=== PATIENT | female | born 1955 | race Caucasian/White ===

== ENCOUNTER 2018-08-01 15:52 | Emergency (ER) | payer MEDICARE, BC ==
[2018-08-01 16:42] VITALS: BP 95/68
--- NOTE | 2018-08-01 16:57 | UC ---
Dizzy HPI HPI Summary: SUDDEN ONSET OF DIZZINESS WHILE GOING TO THE BATHROOM 2 NIGHTS AGO. SYMPTOMS WERE SO SEVERE THAT SHE FELL OFF THE TOILET. POSSIBLE LOC. SINCE THEN HAS HAD PERSISTENT DIZZINESS/SENSATION OF SPINNING AND RIGHT FRONTOTEMPORAL DULL HEADACHE. VISION SEEMS BLURRY. SHE DENIES CHEST PAIN, SHORTNESS OF BREATH, NAUSEA. IS A HEAVY SMOKER. DIZZINESS IS NOT POSITIONAL. FEELS UNSTABLE ON HER FEET AND REPORTS HAVING TO WALK SLOWLY AND CAUTIOUSLY WHICH IS UNUSUAL FOR HER. - History Of Current Complaint Chief Complaint: UCDizziness Stated Complaint: DIZZY Time Seen by Provider: 08/01/18 15:57 Hx Obtained From: Patient, Family/Bead Filler - SISTER Hx Last Menstrual Period: post Onset/Duration: Sudden Onset, Lasting Days, Still Present Timing: Constant Severity Initially: Moderate Severity Currently: Moderate Pain Intensity: 3 Pain Scale Used: 0-10 Numeric Character: Head Spinning, Lightheaded, Dizzy Aggravating Factor(s): Nothing Alleviating Factor(s): Nothing Associated Signs And Symptoms: Positive: Unsteady Gait. Negative: Nausea, Vomiting, Chest Pain, SOB, Palpitations - Allergies/Home Medications Allergies/Adverse Reactions: Allergies Allergy/AdvReac Type Severity Reaction Status Date / Time Penicillins Allergy Severe Hives Verified 08/01/18 16:09 Home Medications: Home Medications Alendronate Sodium 70 mg PO WEEKLY 08/01/18 [History Confirmed 08/01/18] Pravastatin (NF) [Pravachol (NF)] 20 mg PO 08/01/18 [History] PMH/Surg Hx/FS Hx/Imm Hx Endocrine History: Dyslipidemia Cardiovascular History: Hypertension - Surgical History Surgical History: Yes Surgery Procedure, Year, and Place: BMT 2002 [place] - Family History Known Family History: Positive: Hypertension Negative: Cardiac Disease - Social History Alcohol Use: Weekly Substance Use Type: None Smoking Status (MU): Heavy Every Day Tobacco Smoker Type: Cigarettes Amount Used/How Often: 1/2 PPD Length of Time of Smoking/Using Tobacco: 45 YRS Have You Smoked in the Last Year: Yes Review of Systems All Other Systems Reviewed And Are Negative: Yes Constitutional: Positive: Negative Eyes: Positive: Blurred Vision Respiratory: Positive: Negative Cardiovascular: Positive: Negative Gastrointestinal: Positive: Negative Neurological: Positive: Headache, Other - DIZZY Physical Exam Triage Information Reviewed: Yes Appearance: Well-Appearing, No Pain Distress, Well-Nourished Vital Signs: Initial Vital Signs Temp 97.6 F 08/01/18 16:00 Pulse 81 08/01/18 16:00 Resp 18 08/01/18 16:00 BP 140/103 08/01/18 16:00 Pulse Ox 100 08/01/18 16:00 Vital Signs Reviewed: Yes Eyes: Positive: Conjunctiva Clear ENT: Positive: Hearing grossly normal, Pharynx normal, Other - RIGHT TM NORMAL. LEFT TM OBSTRUCTED BY CERUMEN Neck: Positive: Supple, Nontender, No Lymphadenopathy Respiratory Exam: Normal Cardiovascular Exam: Normal Abdomen Description: Positive: Soft Musculoskeletal: Positive: No Edema Neurological: Positive: Alert, Muscle Tone Normal, Other: - CN II-XII GROSSLY INTACT BILATERALLY. RAPID ALTERNATING MOVEMENTS INTACT. NEG PRONATOR DRIFT. 5/5 STRENGTH. HEEL TO ARELLANO INTACT BILATERALLY. TANDEM GAIT INTACT. FINGER TO NOSE SLOW BUT INTACT. Psychological: Positive: Normal Response To Family, Age Appropriate Behavior Skin: Negative: Rashes Diagnostics - EKG Cardiac Rate: NL - 75BPM Cardiac Rhythm: Sinus: Normal Ectopy: None ST Segment: Normal Dizzy Course/Dx - Course Course Of Treatment: TO [facility] [place] [facility] [place] AMBULANCE - Differential Dx/Diagnosis Provider Diagnosis: Dizzy - Physician Notifications Discussed Patient Care With: Sulaiman Martin - TO [facility] [place] [facility] [place] AMBULANCE Time Discussed With Above Provider: 16:55 Instructed by Provider To: Will See In ED Discharge - Sign-Out/Discharge Documenting (check all that apply): Patient Departure All imaging exams completed and their final reports reviewed: No Studies - Discharge Plan Condition: Stable Disposition: TRANS HIGHER LVL OF CARE FAC Referrals: Hi Coyne MD [Primary Care Provider] - - Billing Disposition and Condition Condition: STABLE Disposition: Trans Higher Lvl of Care Fac
== END 2018-08-01 17:14 | disposition short-term general hospital (02) ==
LOC: UCEAST 15:52
DX: R42 Dizziness and giddiness (principal); H61.22 Impacted cerumen, left ear; I10 Essential (primary) hypertension; R51 Headache; H53.8 Other visual disturbances; F17.210 Nicotine dependence, cigarettes, uncomplicated; Z88.0 Allergy status to penicillin
CPT/HCPCS: 99203; G0463

== ENCOUNTER → 2018-08-01 17:34 | Emergency (ER) | payer MEDICARE, BC ==
--- NOTE | 2018-08-01 17:51 | ED ---
Head Injury - HPI Summary HPI Summary: Pt is a 63 y/o female sent from who presents to the ED s/p head injury. While urinating 2 nights ago at 2:00 she had a syncopal episode and woke up in the bathtub. The room started spinning before she passed out. Pt had 3 beers earlier in the evening. Pt had LOC for an unknown amount of time, and hit her head on the bathtub. She now c/o right-sided forehead pain, lightheadedness, dizziness, and feels foggy and shaky. The pain is rated a 3/10 in severity. Pt denies any visual changes, N/V, abdominal pain, neck pain, weakness, CP, SOB , or confusion. Pt is not on blood thinners. She has not taken any medications for her symptoms. Pt denies any hx of concussions. - History Of Current Complaint Chief Complaint: EDHeadInjury Stated Complaint: HEADACHE/DIZZINESS Time Seen by Provider: 08/01/18 17:43 Hx Obtained From: Patient Hx Last Menstrual Period: post Mechanism Of Injury: Other - Syncope on toilet, hit head on bathtub Onset/Duration: Started Days Ago - 2, Still Present Severity Currently: Mild Pain Intensity: 3 Pain Scale Used: 0-10 Numeric Location of Head Injury: Frontal - right-sided Associated Signs And Symptoms: LOC Duration Unknown, Other: - head pain - Allergies/Home Medications Allergies/Adverse Reactions: Allergies Allergy/AdvReac Type Severity Reaction Status Date / Time Penicillins Allergy Severe Hives Verified 08/01/18 17:41 PMH/Surg Hx/FS Hx/Imm Hx Endocrine/Hematology History: Denies: Hx Diabetes, Hx Thyroid Disease, Hx Anemia Cardiovascular History: Reports: Hx Hypercholesterolemia, Hx Hypertension - WELL CONTROLLED Respiratory History: Denies: Hx Asthma, Hx Chronic Obstructive Pulmonary Disease (COPD) GI History: Denies: Hx Ulcer Musculoskeletal History: Reports: Hx Arthritis - BACK Sensory History: Reports: Hx Contacts or Glasses - READING Denies: Hx Hearing Aid Opthamlomology History: Reports: Hx Contacts or Glasses - READING Neurological History: Reports: Hx Headaches - Surgical History Surgery Procedure, Year, and Place: BMT 2002 [place] Hx Anesthesia Reactions: No Infectious Disease History: Yes Infectious Disease History: Denies: Hx Clostridium Difficile, Hx Hepatitis, Hx Human Immunodeficiency Virus (HIV), Hx of Known/Suspected MRSA, Hx Shingles, Hx Tuberculosis, Hx Known/ Suspected VRE, Traveled Outside the [place] in Last 30 Days - Family History Known Family History: Positive: Hypertension Negative: Cardiac Disease - Social History Alcohol Use: Weekly Hx Substance Use: No Substance Use Type: Reports: None Hx Tobacco Use: Yes Smoking Status (MU): Heavy Every Day Tobacco Smoker Type: Cigarettes Amount Used/How Often: 1/2 PPD Length of Time of Smoking/Using Tobacco: 45 YRS Have You Smoked in the Last Year: Yes Review of Systems Positive: Other - shakiness Negative: Other - visual changes Negative: Chest Pain Negative: Shortness Of Breath Negative: Abdominal Pain, Vomiting, Nausea Positive: Myalgia - head. Negative: Other - neck pain Neurological: Other - Dizziness, lightheadedness; NEGATIVE: confusion Positive: Syncope. Negative: Weakness All Other Systems Reviewed And Are Negative: Yes Physical Exam - Summary Physical Exam Summary: Appearance: Well appearing, no pain distress Skin: warm, dry, reflects adequate perfusion Head/face: normal Eyes: EOMI, SUSANNAH ENT: mucous membranes moist Neck: supple, non-tender Respiratory: CTA, breath sounds present Cardiovascular: RRR, pulses symmetrical Abdomen: non-tender, soft Bowel Sounds: present Musculoskeletal: normal, strength/ROM intact Neuro: normal, sensory motor intact, A&Ox3 GCS: 15 Triage Information Reviewed: Yes Vital Signs On Initial Exam: Initial Vitals Temp Pulse Resp BP Pulse Ox 98.6 F 81 16 134/99 100 08/01/18 17:38 08/01/18 17:38 08/01/18 17:38 08/01/18 17:38 08/01/18 17:38 Vital Signs Reviewed: Yes Diagnostics - Vital Signs Vital Signs Temp Pulse Resp BP Pulse Ox 08/01/18 17:38 98.6 F 81 16 134/99 100 - Laboratory Lab Statement: Any lab studies that have been ordered have been reviewed, and results considered in the medical decision making process. - CT CT brain CT Interpretation Completed By: Radiologist - No acute disease - EKG 16:02 Cardiac Rate: NL - 75 bpm EKG Rhythm: Sinus Rhythm ST Segment: Normal Summary of EKG Findings: Nl axis, nl intervals, nl QTc Head Injury Course/Dx Course Of Treatment: Nurse's notes reviewed. EKG reviewed from urgent care just prior to arrival. Normal QTC and no AV block. Symptoms from 2 days ago. Minor head injury with postconcussive symptoms that are mild. Patient follow closely with primary care physician. Head CT negative. - Diagnoses Differential Diagnosis/HQI/PQRI: Concussion With LOC, Other - Micturition syncope Provider Diagnoses: Micturition syncope, Closed head injury with concussion Discharge - Sign-Out/Discharge Documenting (check all that apply): Patient Departure - Discharge - Discharge Plan Condition: Improved Disposition: HOME Prescriptions: Ondansetron ODT TAB* [Zofran 4 MG Odt TAB*] 4 mg PO Q8H PRN #10 tab.odt PRN Reason: Nausea Patient Education Materials: Syncope (ED), Post Concussion Syndrome (ED) Referrals: Hi Coyne MD [Primary Care Provider] - Additional Instructions: Drink plenty of fluids. Do not drive having headaches or dizziness. Do not operate machinery. Follow-up with a call in the morning for prompt follow-up with your primary care physician. - Billing Disposition and Condition Condition: IMPROVED Disposition: Home - Attestation Statements Document Initiated by Scribe: Yes Documenting Scribe: Jessica Smith Provider For Whom Scribe is Documenting (Include Credential): Ranjan Elizabeth MD Scribe Attestation: IJessica, scribed for Ranjan Elizabeth MD on 08/01/18 at 1900. Scribe Documentation Reviewed: Yes Provider Attestation: The documentation as recorded by the Jessica martinez accurately reflects the service I personally performed and the decisions made by , Ranjan Elizabeth MD Status of Scribe Document: Viewed
[2018-08-01 19:11] VITALS: BP 0/0
== END | disposition home or self-care (01) ==
LOC: ED 17:34
DX: S06.0X1A Concussion with loss of consciousness of 30 minutes or less, initial encounter (principal); R55 Syncope and collapse; Z88.0 Allergy status to penicillin; F17.210 Nicotine dependence, cigarettes, uncomplicated; X58.XXXA Exposure to other specified factors, initial encounter; Y92.9 Unspecified place or not applicable
CPT/HCPCS: 70450; 99282